=== PATIENT | female | born 1970 | race Two or more races ===

== ENCOUNTER → 2024-11-20 | Outpatient (CLI) | payer MEDICAID, SELFPAY ==
--- NOTE | 2024-11-20 13:00 | XR_ITS ---
Examination: Breast ultrasound, unilateral, right complete Date and time of exam: November 20, 2024 1331 hours INDICATIONS: Mammogram January 22, 2024 nodule inner right breast, ultrasound March 27, 2024 4:00 nodule 6 mm 8:00 nodule 5 mm Technique: Real-time pugh scale ultrasonographic imaging performed right breast including all 4 quadrants as well as nipple retroareolar and axillary region. Findings: 4:00 cyst 3 x 3 mm 8:00 cyst 4 x 3 mm No solid nodules IMPRESSION: BI-RADS Category 2: Benign findings
== END | disposition home or self-care (01) ==
LOC: CDIM 13:09
PROVIDERS: Referring Provider Physician Assistant; Visit Provider Physician Assistant
DX: N60.01 Solitary cyst of right breast (principal)
CPT/HCPCS: 76641

== ENCOUNTER → 2025-03-25 | Outpatient (CLI) | payer MEDICAID, SELFPAY ==
--- NOTE | 2025-03-25 14:45 | XR_ITS ---
Examination: Screening digital mammography, bilateral Computer aided detection 3-D breast Tomosynthesis, bilateral Date and time of exam: March 25, 2025 1517 hours Compared to mammograms dating to March 17, 2022 Indication: Screening Technique: Nonmagnified MLO, CC views of the breasts to been obtained, reconstructed from 3-D Tomosynthesis images. R2 computer aided detection program utilized for evaluation of suspicious masses and/or abnormal calcifications. 3-D Tomosynthesis images obtained. Findings: The breasts are heterogeneously dense, which may obscure small masses 8 mm focal asymmetry inner left breast CC view 6.8 cm from the nipple Impression: BI-RADS Category 0: Incomplete: Need additional imaging evaluation 8 mm focal asymmetry inner left breast CC view 6.8 cm from the nipple, recommend follow-up spot tomographic views in her upper quadrant left breast and bilateral breast sonography to complete the workup
== END | disposition home or self-care (01) ==
LOC: CDIM 15:05
PROVIDERS: Referring Provider Nurse Practitioner Family; Visit Provider Nurse Practitioner Family
DX: Z12.31 Encounter for screening mammogram for malignant neoplasm of breast (principal); N64.89 Other specified disorders of breast; R92.8 Other abnormal and inconclusive findings on diagnostic imaging of breast
CPT/HCPCS: 77063; 77067

== ENCOUNTER → 2025-07-02 | Outpatient (CLI) | payer MEDICAID, SELFPAY ==
--- NOTE | 2025-07-02 15:00 | XR_ITS ---
Examination: Transvaginal ultrasound of the pelvis, complete Technique: Transvaginal sonographic images pelvis performed using pugh scale imaging Exam date and time: October 01, 2025 1538 hours INDICATIONS: Pelvic pain beginning 2 months ago FINDINGS: Uterus 8.0 cm endometrial stripe 0.6 cm No uterine mass Right ovary absent Left ovary 2.5 cm arterial flow No fluid in the cul-de-sac IMPRESSION: Borderline thickening endometrial stripe 0.6 cm. Recommend 3 month follow-up transvaginal pelvic sonography
--- NOTE | 2025-07-02 15:00 | XR_ITS ---
Examination: Pelvic ultrasound, transabdominal, complete Technique: Transabdominal ultrasound of the pelvis performed using grayscale imaging Date and time of exam: July 02, 2025 1831 hours INDICATIONS: Pelvic pain beginning 2 months ago. FINDINGS: Uterus 9.1 mm stripe 0.7 cm, no uterine mass Absent right ovary Left ovary 3.0 cm arterial flow IMPRESSION: No uterine or adnexal mass demonstrated
== END | disposition home or self-care (01) ==
PROVIDERS: PCP Physician Assistant; Referring Provider Physician Assistant; Visit Provider Physician Assistant
DX: R93.89 Abnormal findings on diagnostic imaging of other specified body structures (principal)
CPT/HCPCS: 76830; 76856

== ENCOUNTER → 2025-07-16 | Outpatient (CLI) | payer MEDICAID, SELFPAY ==
--- NOTE | 2025-07-16 09:00 | XR_ITS ---
Examination: Breast ultrasound complete, bilateral Date and time of exam: July 16, 2025 0906 hours, comparison November 20, 2024 INDICATIONS: Mammogram March 25, 2025 8mm focal asymmetry inner left breast, patient states dates bilateral breast tenderness 6 months. Technique: Real-time grayscale ultrasonographic imaging bilateral breasts, including all 4 quadrants as well as nipple retroareolar and axillary regions. Findings: Sonographic images right breast No cystic or solid mass Sonographic images left breast 8:00 cyst 5 x 5 mm No solid nodules IMPRESSION: BI-RADS Category 2: Benign findings
--- NOTE | 2025-07-16 10:00 | XR_ITS ---
Examination: Diagnostic digital mammography, unilateral, LEFT Computer aided detection 3-D breast Tomosynthesis, unilateral Date and time of exam: July 16, 2025 0918 hours INDICATIONS: Mammogram March 25, 2025 8mm focal asymmetry inner left breast CC view, 6.8 cm from the nipple Technique: Nonmagnified MLO, CC views of the left breast have been obtained, reconstructed from 3-D Tomosynthesis images. R2 computer aided detection program utilized for evaluation of suspicious masses and/or abnormal calcifications. 3-D Tomosynthesis images obtained. Findings: The breast is heterogeneously dense, which may obscure small masses Spot compression views left breast do not confirm suspicious nodule Impression: BI-RADS category 2: Benign findings Return to yearly follow-up mammography
== END | disposition home or self-care (01) ==
LOC: CDIM 08:43
PROVIDERS: PCP Physician Assistant; Referring Provider Physician Assistant; Visit Provider Physician Assistant
DX: R92.322 Mammographic fibroglandular density, left breast (principal)
CPT/HCPCS: 76641; 77061; 77065; G0279

== ENCOUNTER → 2025-07-17 | Outpatient (CLI) | payer MEDICAID, SELFPAY ==
[2025-07-17 10:31] LABS: HCG Qualitative,Urine Negative
[2025-07-17 10:43] LABS: Anion Gap 9 (7-16); BUN/Creatinine Ratio 13 Ratio (12-20); Blood Urea Nitrogen 10 mg/dL (9-23); Calcium 9.9 mg/dL (8.3-10.6); Carbon Dioxide 26.6 mMol/L (20.0-31.0); Chloride 106 mMol/L (98-107); Creatinine (Component) 0.8 mg/dL (0.6-1.3); Glucose 136 mg/dL (74-106); Osmolality,Calculated 284 (275-295); Potassium 3.9 mMol/L (3.4-5.1); Sodium 142 mMol/L (136-145); eGFR > 60 See Note
--- NOTE | 2025-07-17 13:30 | XR_ITS ---
Examination: CT abdomen, without intravenous contrast. CT pelvis, without intravenous contrast. CT abdomen, with intravenous contrast. CT pelvis, with intravenous contrast. 2-D sagittal coronal reconstructions. Date and time of exam:July 17, 2025 1407 hours INDICATIONS: Pelvic and perineal pain left-sided abdominal pain beginning 6 months ago CTDI: vol (mGy) 16 DLP: (mGycm) 863 Technique: Multiple 3.0 axial images of the abdomen and pelvis without intravenous contrast, 3.0 mm slice thickness. Multiple 3.0 postcontrast images abdomen and pelvis also obtained, post intravenous injection 60 cc [id number] 2-D sagittal and coronal reconstructions. Low dose protocols were performed. One or more of the following dose reduction techniques were used; automated exposure control, adjustment of the mA and/or KV according to patient size, use of iterative reconstruction technique. Findings: Fatty infiltration throughout the liver, no focal liver or splenic lesions Contracted gallbladder No pancreatic or adrenal mass No renal or ureteral calculi, no hydronephrosis Aorta normal size Absent appendix No bowel obstruction Anteverted uterus No bladder mass or bladder calculi Prominent osteopenia No perineal inflammatory change IMPRESSION: Fatty infiltration throughout the liver No renal or ureteral calculi, no hydronephrosis Absent appendix No bowel obstruction diverticulitis or free air No pelvic mass or inflammatory change
== END | disposition home or self-care (01) ==
LOC: CCTX 12:51
PROVIDERS: PCP Physician Assistant; Referring Provider Physician Assistant; Visit Provider Physician Assistant
DX: K76.0 Fatty (change of) liver, not elsewhere classified (principal); R10.2 Pelvic and perineal pain; I10 Essential (primary) hypertension; Z32.00 Encounter for pregnancy test, result unknown
CPT/HCPCS: 36415; 74178; 80048; 81025; A4649; Q9967